=== PATIENT | male | born 1980 | race Caucasian/White ===

== ENCOUNTER 2019-07-15 11:27 | Emergency (ER) | payer OTHER, SELFPAY ==
[2019-07-15 11:33] VITALS: BP 175/109; PULSE 90; RESP 20; TEMP 36.7; O2SAT 99
--- NOTE | 2019-07-15 12:09 | ED.DENTAL ---
HPI - Dental/Oral General Chief complaint: Dental/Oral Stated complaint: tooth ache Time Seen by Provider: 07/15/19 12:09 Source: patient Mode of arrival: ambulatory Limitations: no limitations History of Present Illness HPI Narrative: 39-year-old male patient presents to the [facility] with complaints of right lower dental pain for the past 3 days. Patient states that he has had a broken tooth to the back of the right oral cavity for years now but this recently has started to bother him causing some pain. Patient states he has taken 800 mg ibuprofen twice in the last 3 to 4 days. Patient states he is also been taking shots of whiskey and gargling it and then spitting it out to help with the pain. Patient states he does have an appointment with the dental clinic on Thursday in the morning to have it looked at and possibly pulled. Patient denies any fevers. Related Data Allergies Allergy/AdvReac Type Severity Reaction Status Date / Time No Known Allergies Allergy Verified 07/15/19 11:49 Review of Systems Review of Systems: Narrative: CONSTITUTIONAL: Denies fever, chills, or sweats. EYES: Denies visual changes, redness, or discharge. ENT: Denies rhinorrhea, congestion, sore throat, or otalgia. Positive right lower dental pain CARDIOVASCULAR: Denies chest pain, palpitations, or edema. RESPIRATORY: Denies cough or dyspnea. GASTROINTESTINAL: Denies abdominal pain, nausea, vomiting, or diarrhea. GENITOURINARY: Denies dysuria or hematuria. SKIN: Denies rash or itching. MUSCULOSKELETAL: Denies back pain, joint pain, or myalgia. NEUROLOGIC: Denies headache, numbness, or weakness. PSYCHIATRIC: Denies anxiety or depression. PMFSH Comments At the time of my signature I agree with nursing past medical history, surgical, social, and family history. There is no relevant family history pertinent to the presenting complaint. Exam Narrative: Exam Narrative: GENERAL: Well-appearing, well-nourished, and in no acute distress. HEAD: Normocephalic, atraumatic. EYES: PERRLA and EOMI. ENT: Nares clear, no rhinorrhea or epistaxis. Mucous membranes moist. Patient does have a broken tooth noted to the right back molar on the bottom. There is some surrounding erythema and swelling. There is no obvious abscess and no discharge present at this time. No swelling to the cheek or posterior pharynx at this time. NECK: Supple. No lymphadenopathy CHEST: Clear to auscultation. No respiratory distress. HEART: Regular rate and rhythm. No murmur heard. Normal peripheral pulses. ABDOMEN: Soft, nontender, nondistended, normal active bowel sounds. EXTREMITIES: Normal range of motion. No edema. SKIN: Warm, dry, no rash. NEURO: No focal deficits. Alert and oriented x3. Course Vital Signs Vital signs: Vital Signs Temperature 36.7 C 07/15/19 11:33 Pulse Rate 90 07/15/19 11:33 Respiratory Rate 20 07/15/19 11:33 Blood Pressure 175/109 H 07/15/19 11:33 Pulse Oximetry 99 07/15/19 11:33 Temperature 36.7 C 07/15/19 11:33 Pulse Rate 90 07/15/19 11:33 Respiratory Rate 20 07/15/19 11:33 Blood Pressure 175/109 H 07/15/19 11:33 Pulse Oximetry 99 07/15/19 11:33 Vital signs reviewed. The patient has been informed that they may have pre-hypertension or Hypertension based on a BP reading in the department. I recommend that the patient call the primary care provider listed on their discharge instructions or a physician of their choice this week to arrange follow up for further evaluation of possible pre-hypertension or Hypertension MDM - Dental/Oral MDM Narrative Medical decision making narrative: Differential diagnosis: Dental caries, periodontal disease, avulsed tooth, tooth infections, mandibular infection, Yovani's angiana, upper tooth infection, dry socket, gingivitis, acute necrotizing ulcerative gingivitis, sialolithiasis. Discussed with patient we will discharge him home with 100 mg ibuprofen as well as an antibiotic to help with t
[2019-07-15 12:25] VITALS: BP 158/91
== END 2019-07-15 12:25 | disposition home or self-care (01) ==
PROVIDERS: Emergency Provider Nurse Practitioner Family
DX: K08.89 Other specified disorders of teeth and supporting structures (principal); K02.9 Dental caries, unspecified; I10 Essential (primary) hypertension
CPT/HCPCS: 99213; G0463

== ENCOUNTER 2021-12-07 14:33 | Emergency (ER) | payer OTHER, SELFPAY ==
[2021-12-07 14:40] VITALS: BP 162/99; PULSE 87; RESP 18; TEMP 36.5; O2SAT 97
--- NOTE | 2021-12-07 15:01 | ECG_ITS ---
Measurements Intervals [place] Rate: 91 P: 65 PA: 173 QRS: 62 QRSD: 94 T: 54 QT: 351 QTc: 432 Interpretive Statements SINUS RHYTHM VOLTAGE CRITERIA FOR LVH MINIMAL Q WAVES- ANTEROLAT/INF LEADS BORDERLINE ECG NO PREVIOUS ECG AVAILABLE FOR COMPARISON Electronically Signed On 12-07-2021 21:43:44 CDT by Koffi De D.O.
--- NOTE | 2021-12-07 15:05 | ED.CHESTPAIN ---
HPI - Chest Pain General Chief Complaint: Chest Pain Stated Complaint: chest pain Time Seen by Provider: 12/07/21 14:55 Source: patient Mode of arrival: ambulatory Limitations: no limitations History of Present Illness HPI narrative: this is a 41-year-old gentleman no significant past medical history states that he was out drinking overnight and had a large yd that he mowed and cleared heavy branches and developed an episode of left-sided chest pain reproducible with palpation no shortness of breath no diaphoresis no nausea vomiting no fever chills no history of heart disease. MD complaint: chest pain Onset (ago): hour(s) Onset: during rest Pain location: substernal Quality: aching Exacerbating factors: nothing Related Data Home Medications Medication Instructions Recorded Confirmed No Home Medications 12/07/21 12/07/21 Allergies Allergy/AdvReac Type Severity Reaction Status Date / Time No Known Allergies Allergy Verified 12/07/21 14:59 Review of Systems Review of Systems: All systems reviewed & are unremarkable except as noted in HPI and below PMFSH Past Medical History Medical History Patient denies medical problems Exam Const: General: healthy appearing and no acute distress HENMT: Head: normal to inspection Eyes: Conjunctivae: conjunctivae normal Pupils: Equal, round and reactive pupils present Neck: Neck: normal visual inspection, no lymphadenopathy and no meningeal signs Chest: Chest palpation & inspection: normal inspection of the chest Other: reproducible chest pain with palpation Resp: Auscultation: clear to auscultation bilaterally Cardio: Rate: regular rate Rhythm: regular rhythm GI: Auscultation: normal bowel sounds Back/Spine/Pelvis: Back: no CVA tenderness Skin: General skin exam: normal color Rashes: no rashes Wounds: no wounds Neuro: General: patient oriented x3 Extrem: General: normal to inspection Psych: Mental Status: mental status grossly normal Affect: normal affect Course Course Emergency Course: EKG reviewed shows normal sinus rhythm advised patient to drink plenty of water keep himself hydrated and can take Tylenol or Motrin if there is any more discomfort. Vital Signs Vital signs: Vital Signs Temperature 36.5 C 12/07/21 14:40 Pulse Rate 87 12/07/21 14:40 Respiratory Rate 18 12/07/21 14:40 Blood Pressure 162/99 H 12/07/21 14:40 Pulse Oximetry 97 12/07/21 14:40 Oxygen Delivery Room Air 12/07/21 14:40 Temperature 36.5 C 12/07/21 14:40 Pulse Rate 87 12/07/21 14:40 Respiratory Rate 18 12/07/21 14:40 Blood Pressure 162/99 H 12/07/21 14:40 Pulse Oximetry 97 12/07/21 14:40 Oxygen Delivery Room Air 12/07/21 14:40 Critical Care Time Critical Care Time Critical Care Time: No Discharge Plan Discharge Clinical Impression: Costalchondritis Patient Disposition: Home, Self-Care Condition: Stable Instructions: Antibiotic Form, Costochondritis (ED) Additional Instructions: Keep yourself hydrated can drink plenty of water/ Gatorade can take Tylenol or Motrin for any more chest discomfort follow-up with primary if symptoms persist or worsen. Prescriptions: No Action No Home Medications Follow-up/Referrals: UNKNOWN,DOCTOR [Primary Care Provider] - Time of Disposition: 15:10
[2021-12-07 15:14] VITALS: BP 150/84; PULSE 75; RESP 18; O2SAT 97
== END 2021-12-07 15:16 | disposition home or self-care (01) ==
PROVIDERS: Emergency Provider Emergency Medicine
DX: M94.0 Chondrocostal junction syndrome [Tietze] (principal)
CPT/HCPCS: 93005; 99283

== ENCOUNTER 2022-02-21 13:15 | Emergency (ER) | payer OTHER, SELFPAY ==
[2022-02-21] VITALS (27 sets, daily range): BP systolic 132–158; BP diastolic 75–87; PULSE 78–91; RESP 20; TEMP 36.8–36.9; O2SAT 93–98
--- NOTE | ~2022-02-21 | XR_ITS ---
EXAMINATION: XR chest 2V DATE: 02/21/2022 14:15 INDICATION: Lateral sided left chest pain and cough TECHNIQUE: PA and lateral views of the chest were obtained. COMPARISON: None FINDINGS: Airspace opacity in the retrohilar superior segment of the left lower lobe. No other airspace opaciti es, pulmonary edema, pleural effusion or pneumothorax. The cardiomediastinal silhouette is normal. Vi sualized bones and soft tissues are unremarkable. IMPRESSION: 1. Airspace opacity in the right hilar superior segment of the left lower lobe, likely pneumonia but recommend radiographic follow-up to resolution. Reviewed, dictated and finalized at location A. IFIED MEDICINE AIDE
--- NOTE | ~2022-02-21 | CT_ITS ---
EXAMINATION: CTA chest PE protocol DATE: 02/21/2022 15:08 INDICATION: Pleuritic chest pain. Elevated d-dimer. TECHNIQUE: Computed tomography angiography (CTA) of the chest was performed with 100 mL Omnipaque-350 intravenous contrast timed to evaluate the pulmonary arteries. Coronal maximum intensity projection 3D-reconstructions were created by the technologist. Automated exposure control and iterative reconst ruction technique were employed. Exam dose: 349.91 mGy-cm total exam DLP. COMPARISON: Lateral left chest pain and cough for one week FINDINGS: There is moderate contrast opacification of the pulmonary arteries and no evidence of pulmo nary embolism. No thoracic aortic aneurysm or dissection. There is mild left hilar lymph node prominence, likely reactive to a cavitating area of consolidation or cavitating approximately 3.7 cm mass with surrounding infiltrate in the superior segment of the l eft lower lobe. The lung quiñones are otherwise clear. Normal heart size. No pericardial or pleural effusion. Adrenal glands are normal. Included upper abdominal structures are unremarkable. Included skeletal structures are unremarkable. IMPRESSION: Cavitating mass or cavitary consolidation, superior segment of left lower lobe, with tyra e surrounding infiltrate. Likely mild reactive left hilar lymph node prominence No evidence of pulmonary embolism Reviewed, dictated and finalized at Location [facility]. Reviewed, dictated and finalized at location A. EQUIPMENT OPERATOR IMPRESSION: Cavitating mass or cavitary consolidation, superior segment of lef t lower lobe, with some surrounding infiltrate. Likely mild reactive left hilar lymph node prominence No evidence of pulmonary embolism
--- NOTE | 2022-02-21 13:57 | ED.GENADULT ---
HPI - General Adult General Chief complaint: Upper Respiratory Infection Stated complaint: L side pain Time Seen by Provider: 02/21/22 13:57 History of Present Illness HPI narrative: Patient is a 41-year-old white male complains of left lateral chest wall pain and cough for last week productive of some sputum which he says he swallows. Says hurts when he coughs or takes deep breath. Denies any fever her anterior chest pain denies any history of heart or lung or venous thromboembolism. Not taken anything for the pain. Denies any nausea vomiting diarrhea problems voiding rash or itching or fever. Related Data Home Medications Medication Instructions Recorded Confirmed No Home Medications 12/07/21 02/21/22 Allergies Allergy/AdvReac Type Severity Reaction Status Date / Time pollen extracts Allergy Cough Verified 02/21/22 13:57 Review of Systems Review of Systems: All systems reviewed & are unremarkable except as noted in HPI and below Constitutional: Constitutional: Reports as per HPI Eyes: Eyes: Reports no additional eye complaints ENT: Reports system reviewed and no additional complaints, except as documented Cardiovascular: Cardiovascular: Reports as per HPI and Reports no additional cardiovascular complaints Respiratory: Respiratory: Reports as per HPI, Reports no additional respiratory complaints and Denies dyspnea Gastrointestinal: Gastrointestinal: Reports as per HPI and Reports no additional gastrointestinal complaints Genitourinary: Genitourinary: Reports no additional male genitourinary complaints Musculoskeletal: Musculoskeletal: Reports no additional musculoskeletal complaints and Reports as per HPI Integumentary/Breasts: Skin/Breast: Reports system reviewed and no additional complaints, except as docu Neurologic: Reports system reviewed and no additional complaints, except as documented [facility] Past Medical History Medical History Patient denies medical problems Exam Narrative: White male appears in no apparent distress head is normocephalic atraumatic eyes conjunctiva pink sclera nonicteric oropharynx clear with moist mucous membranes. Chest and back are nontender. Lungs are clear heart is regular rate rhythm without murmurs gallops or rubs. Abdomen is soft and nontender no hepatosplenomegaly or masses extremities no cyanosis clubbing or edema skin is warm and dry he has multiple spider hemangiomas of his trunk. Patient admits to drinking excessive alcohol. Vital signs are normal Course Course Emergency Course: Evaluation plan was discussed with patient all questions were asked and answered. And a plan was agreed upon patient was given Levaquin 750 mg p.o. and a spacer for his albuterol inhaler Vital Signs Vital signs: Vital Signs Temperature 36.8 C 02/21/22 13:20 Pulse Rate 87 02/21/22 13:20 Respiratory Rate 20 02/21/22 13:20 Blood Pressure 148/87 H 02/21/22 13:20 Pulse Oximetry 96 02/21/22 13:20 Oxygen Delivery Room Air 02/21/22 13:20 Temperature 36.8 C 02/21/22 13:20 Pulse Rate 85 02/21/22 15:06 Respiratory Rate 20 02/21/22 13:20 Blood Pressure 158/77 H 02/21/22 15:06 Pulse Oximetry 98 02/21/22 15:06 Oxygen Delivery Room Air 02/21/22 13:20 Medical Decision Making Vital Signs Vital Signs: Vital Signs Temperature 36.8 C 02/21/22 13:20 Pulse Rate 87 02/21/22 13:20 Respiratory Rate 20 02/21/22 13:20 Blood Pressure 148/87 H 02/21/22 13:20 Pulse Oximetry 96 02/21/22 13:20 Oxygen Delivery Room Air 02/21/22 13:20 Temperature 36.8 C 02/21/22 13:20 Pulse Rate 85 02/21/22 15:06 Respiratory Rate 20 02/21/22 13:20 Blood Pressure 158/77 H 02/21/22 15:06 Pulse Oximetry 98 02/21/22 15:06 Oxygen Delivery Room Air 02/21/22 13:20 Lab Data Result diagrams: 02/21/22 14:19 02/21/22 14:19 Labs: Lab Results
[2022-02-21 14:22] LABS: Hematocrit 39.1 % (40.0-54.0); Hemoglobin 13.8 g/dL (14.0-18.0); Mean Corpuscular HGB Conc 35.3 g/dL (32.0-36.0); Mean Corpuscular Hemoglobin 33.5 pg (27.0-31.0); Mean Corpuscular Volume 94.9 fL (78.0-102.0); Mean Platelet Volume 8.9 fl (8.7-11.0); Platelet Count Result 275 K/mm3 (150-420); Red Blood Count 4.12 M/mm3 (4.70-6.10); Red Cell Distribution Width 11.4 % (11.6-14.4); White Blood Count 11.1 K/mm3 (4.8-10.8)
[2022-02-21 14:33] LABS: Influenza A QL RT-PCR Negative (Negative); Influenza B QL RT-PCR Negative (Negative); SARS-CoV-2 RNA PCR Negative (Negative)
[2022-02-21 14:35] LABS: RSV RNA, RT-PCR Negative (Negative)
[2022-02-21 14:37] LABS: Alanine Aminotransferase 40 U/L (16-63); Albumin Level 3.3 g/dL (3.4-5.0); Alkaline Phosphatase 122 U/L (46-116); Anion Gap 12 mmol/L (8-16); Aspartate Amino Transferase 22 U/L (15-37); Bilirubin,Total 0.8 mg/dL (0.00-1.00); Blood Urea Nitrogen 9 mg/dL (7-18); Calcium 9.1 mg/dL (8.5-10.1); Carbon Dioxide 25 mmol/L (21-32); Chloride 97 mmol/L (98-108); Estimated CRCL calculation 96 ml/min; Estimated Glomerular Filt Rate > 60; Glucose 99 mg/dL (70-99); Osmolality Calculated 276 mOsm/kg (285-295); Potassium 4.2 mmol/L (3.5-5.1); Sodium 134 mmol/L (136-145); Total Protein 7.9 g/dL (6.4-8.2)
[2022-02-21 14:54] LABS: Troponin I < 4.0 ng/L (0.00-60.4)
[2022-02-21] MEDS: levoFLOXacin TAB 500 MG, levoFLOXacin TAB 250 MG 750 MG PO (18:29)
== END 2022-02-21 18:45 | disposition home or self-care (01) ==
PROVIDERS: Emergency Provider Emergency Medicine
DX: J18.9 Pneumonia, unspecified organism (principal); R91.1 Solitary pulmonary nodule; Z20.822 Contact with and (suspected) exposure to COVID-19
CPT/HCPCS: 36415; 71046; 71275; 80053; 84484; 85027; 85380; 87637; 99284; A9270; Q9967

== ENCOUNTER 2022-03-07 11:10 | Outpatient (CLI) | payer OTHER, SELFPAY ==
--- NOTE | ~2022-03-07 | XR_ITS ---
XR chest 2V DATE: 03/07/2022 11:34 INDICATION: Pneumonia. Smoker. Asthma. TECHNIQUE: PA and lateral views COMPARISON: 02/21/2022 CT pulmonary scan FINDINGS: There is apparent diminished infiltrate and improvement or resolution of cavitary lesion in the superior segment of the left lower lobe compared to 02/21/2022. The lungs otherwise are clear of infiltrate or consolidation. The lungs are moderately hyperinflated consistent with obstructive airways disease. Normal heart size. No hilar or mediastinal enlargement. No pleural effusion or pulmonary vascular con gestion or pneumothorax. Included skeletal structures are unremarkable. IMPRESSION: Improvement of superior segment left lower lobe infiltrate and apparent resolving or reso lved cavitation in the superior segment left lower lobe compared to 02/21/2022. There is some residua l infiltrate. Continued imaging follow-up to complete resolution is recommended. COPD Reviewed, dictated and finalized at location B. TECHNICIAN IMPRESSION: Improvement of superior segment left lower lobe infiltrate and appa rent resolving or resolved cavitation in the superior segment left lower lobe c ompared to 02/21/2022. There is some residual infiltrate. Continued imaging fol low-up to complete resolution is recommended. COPD
[2022-03-07 11:28] LABS: Basophils Absolute Auto 0.03 K/mm3 (0.00-0.10); Basophils Percent Auto 0.5 % (0.0-1.0); Eosinophils Absolute Auto 0.07 K/mm3 (0.02-0.50); Eosinophils Percent Auto 1.2 % (1.0-6.0); Hematocrit 42.7 % (40.0-54.0); Hemoglobin 14.7 g/dL (14.0-18.0); Immature Granulocyte Absolute 0.04 K/mm3 (0.00-0.00); Immature Granulocyte Percent A 0.7 % (0.0-0.0); Lymphocytes Absolute Auto 1.76 K/mm3 (1.10-4.50); Lymphocytes Percent Auto 29.3 % (18.0-42.0); Mean Corpuscular HGB Conc 34.4 g/dL (32.0-36.0); Mean Corpuscular Hemoglobin 33.1 pg (27.0-31.0); Mean Corpuscular Volume 96.2 fL (78.0-102.0); Mean Platelet Volume 8.6 fl (8.7-11.0); Monocytes Absolute Auto 0.32 K/mm3 (0.10-0.90); Monocytes Percent Auto 5.3 % (2.0-11.0); Neutrophils Absolute Auto 3.8 K/mm3 (1.7-7.2); Platelet Count Result 412 K/mm3 (150-420); Red Blood Count 4.44 M/mm3 (4.70-6.10); Red Cell Distribution Width 11.4 % (11.6-14.4)
== END 2022-03-07 11:11 | disposition home or self-care (01) ==
LOC: CHSLAB 11:13
PROVIDERS: PCP Family Medicine; Visit Provider Internal Medicine Pulmonary Disease
DX: J18.9 Pneumonia, unspecified organism (principal)
CPT/HCPCS: 36415; 71046; 85025

== ENCOUNTER 2022-12-01 12:19 | Emergency (ER) | payer OTHER, SELFPAY ==
[2022-12-01 12:22] VITALS: BP 140/94; PULSE 71; RESP 18; TEMP 36.8; O2SAT 97
--- NOTE | 2022-12-01 12:23 | ED.GENADULT ---
HPI - General Adult General Chief complaint: Dental/Oral Stated complaint: Tooth pain Time Seen by Provider: 12/01/22 12:20 History of Present Illness HPI narrative: Garry is a 42M with a PMH of asthma, smoking and pneumonia that presented to the ED with a day of worsening dental pain on the left upper side. As it is a holiday weekend he could not get to the dentist. No fevers, chills, dysphagia, or other systemic symptoms. Related Data Allergies Allergy/AdvReac Type Severity Reaction Status Date / Time pollen extracts Allergy Cough Verified 12/01/22 12:21 Review of Systems Review of Systems: All systems reviewed & are unremarkable except as noted in HPI and below PMFSH Past Medical History Medical History Patient denies medical problems Social History Social History Smoking packs per day: 2 Smoking cigarettes per day: 40.0 Years smoked: 25 Smoking pack-years: 50.00 Smoking status: Current every day smoker Second hand tobacco smoke exposure: Yes Alcohol intake: former Alcohol use details: Pt has not had a drink since 02/20/22 Substance use: current Substance use type: marijuana Lack of Transportation: No Lack of Food: Never True Current Housing: I Have Housing Concerned About Future Housing: No Difficulty Paying Gas/Electric Bills: No Difficulty Paying for Meds: No Currently Unemployed: No Education: High School Diploma/GED Difficulty w/ Childcare or Family Care: No Living arrangements: with family Exam Const: General: healthy appearing and no acute distress Nutritional Appearance: well nourished Orientation/consciousness: patient oriented x3 HENMT: Head: normal to inspection Ears: external ears normal Face/Nose/Sinus: Normal external nose present Other: Left upper molar was TTP, swollen and erythematous Eyes: Conjunctivae: conjunctivae normal Pupils: Equal, round and reactive pupils present Neck: Neck: normal visual inspection Chest: Chest palpation & inspection: normal inspection of the chest Resp: Effort & Inspection: normal respiratory effort Auscultation: clear to auscultation bilaterally Cardio: Rate: regular rate GI: Inspection: distended Back/Spine/Pelvis: Back: no CVA tenderness Skin: General skin exam: normal color Neuro: General: patient oriented x3 and moves all extremities Extrem: General: normal to inspection Psych: Mental Status: mental status grossly normal Course Course Emergency Course: Given Augmentin and Delta Discharge Plan Discharge Clinical Impression: Dental abscess Patient Disposition: Home, Self-Care Condition: Stable Instructions: Antibiotic Form Prescriptions: New amoxicillin-pot clavulanate 875-125 mg tablet 1 tablet PO Q12H Qty: 10 0RF oxycodone 5 mg tablet 5 mg PO Q8H PRN (Reason: pain) Qty: 10 0RF Follow-up/Referrals: Fracisco Skinner DO [Primary Care Provider] - Stand Alone Forms: Work/School Release IP
[2022-12-01] MEDS: HYDROcodone/acetaminophen (*CRX) 5-325 MG TABLET 1 TAB PO (12:33)
[2022-12-01] MEDS: AMOXICILLIN/CLAVULANATE K 875-125 MG TAB 1 TABLET PO (12:33)
[2022-12-01 12:54] VITALS: BP 140/94; PULSE 71; RESP 18; TEMP 36.8; O2SAT 97
== END 2022-12-01 12:56 | disposition home or self-care (01) ==
PROVIDERS: Emergency Provider Family Medicine; PCP Family Medicine
DX: K04.7 Periapical abscess without sinus (principal); J45.909 Unspecified asthma, uncomplicated; F17.210 Nicotine dependence, cigarettes, uncomplicated
CPT/HCPCS: 99283; A9270

== ENCOUNTER 2023-01-15 18:15 | Emergency (ER) | payer OTHER, SELFPAY ==
--- NOTE | ~2023-01-15 | XR_ITS ---
EXAMINATION: XR chest 1V portable INDICATION: Midsternal chest pain TECHNIQUE: Portable AP chest at 1912 hours COMPARISON: 01/05/2022 FINDINGS: The lungs are free of acute opacities. No pleural effusion or pneumothorax. The cardiomedia stinal silhouette is normal. IMPRESSION: 1. No acute cardiopulmonary abnormality. Reviewed, dictated and finalized at location F.
[2023-01-15 18:15] VITALS: BP 128/89; PULSE 74; RESP 16; TEMP 37.1; O2SAT 99
[2023-01-15 18:33] VITALS: O2SAT 98
[2023-01-15 18:53] VITALS: PULSE 76; RESP 18; O2SAT 97
[2023-01-15] MEDS: IPRATROPIUM 0.5 MG/ALBUTEROL SULFATE 2.5 MG AMPUL.NEB 3 ML INHALATION (18:53)
[2023-01-15 18:58] LABS: Basophils Absolute Auto 0.03 K/mm3 (0.00-0.10); Basophils Percent Auto 0.4 % (0.0-1.0); Eosinophils Absolute Auto 0.18 K/mm3 (0.02-0.50); Eosinophils Percent Auto 2.4 % (1.0-6.0); Hematocrit 43.8 % (40.0-54.0); Hemoglobin 15.1 g/dL (14.0-18.0); Immature Granulocyte Absolute 0.02 K/mm3 (0.00-0.00); Immature Granulocyte Percent A 0.3 % (0.0-0.0); Lymphocytes Absolute Auto 2.23 K/mm3 (1.10-4.50); Lymphocytes Percent Auto 30.1 % (18.0-42.0); Mean Corpuscular HGB Conc 34.5 g/dL (32.0-36.0); Mean Corpuscular Hemoglobin 31.3 pg (27.0-31.0); Mean Corpuscular Volume 90.7 fL (78.0-102.0); Mean Platelet Volume 9.7 fl (8.7-11.0); Monocytes Absolute Auto 0.76 K/mm3 (0.10-0.90); Monocytes Percent Auto 10.3 % (2.0-11.0); Neutrophils Absolute Auto 4.2 K/mm3 (1.7-7.2); Neutrophils Percent Auto 56.5 % (50.0-70.0); Platelet Count Result 230 K/mm3 (150-420); Red Blood Count 4.83 M/mm3 (4.70-6.10); Red Cell Distribution Width 12.5 % (11.6-14.4); White Blood Count 7.4 K/mm3 (4.8-10.8)
[2023-01-15 19:04] VITALS: PULSE 80; RESP 18; O2SAT 100
[2023-01-15] MEDS: methylPREDNISolone ACETATE 40 MG/ML VIAL 80 MG IM (19:04)
[2023-01-15 19:15] LABS: Alanine Aminotransferase 21 U/L (16-63); Albumin Level 4.1 g/dL (3.4-5.0); Alkaline Phosphatase 149 U/L (46-116); Anion Gap 12 mmol/L (8-16); Aspartate Amino Transferase < 10 U/L (15-37); Bilirubin,Total 0.5 mg/dL (0.00-1.00); Blood Urea Nitrogen 4 mg/dL (7-18); Calcium 9.6 mg/dL (8.5-10.1); Carbon Dioxide 28 mmol/L (21-32); Chloride 102 mmol/L (98-108); Estimated CRCL calculation 94 ml/min; Estimated Glomerular Filt Rate > 60; Glucose 94 mg/dL (70-99); Osmolality Calculated 290 mOsm/kg (285-295); Sodium 142 mmol/L (136-145); Total Protein 7.5 g/dL (6.4-8.2)
[2023-01-15 19:36] VITALS: BP 132/88; PULSE 72; RESP 19; O2SAT 96
[2023-01-15 19:36] LABS: Influenza A QL RT-PCR Negative (Negative); Influenza B QL RT-PCR Negative (Negative); SARS-CoV-2 RNA PCR Negative (Negative)
[2023-01-15 19:37] LABS: RSV RNA, RT-PCR Negative (Negative)
--- NOTE | 2023-01-15 19:56 | ED.URI ---
HPI - URI/Sore Throat General Chief Complaint: Upper Respiratory Infection Stated Complaint: congestion; upper respiratory infection Time Seen by Provider: 01/15/23 18:23 Source: patient Mode of arrival: ambulatory Limitations: no limitations History of Present Illness HPI Narrative: this is a 42-year-old male who presents with shortness of breath with audible wheezing has a history of asthma has been using his albuterol inhaler with relief, continues to smoke. Patient O2 sats 100% on room air no cough no congestion no fever chills. MD elicited complaint: other ( shortness of breath with wheezing) Onset (ago): day(s) Consistency: intermittent Severity: moderate Related Data Home Medications Medication Instructions Recorded Confirmed albuterol sulfate 90 mcg/actuation 2 puff inhalation QID 01/15/23 01/15/23 aerosol inhaler Allergies Allergy/AdvReac Type Severity Reaction Status Date / Time pollen extracts Allergy Cough Verified 01/15/23 18:30 Review of Systems Review of Systems: All systems reviewed & are unremarkable except as noted in HPI and below PMFSH Past Medical History Medical History Patient denies medical problems Social History Social History Smoking packs per day: 2 Smoking cigarettes per day: 40.0 Years smoked: 25 Smoking pack-years: 50.00 Smoking status: Current every day smoker Second hand tobacco smoke exposure: Yes Alcohol intake: former Alcohol use details: Pt has not had a drink since 02/20/22 Substance use: current Substance use type: marijuana Lack of Transportation: No Lack of Food: Never True Current Housing: I Have Housing Concerned About Future Housing: No Difficulty Paying Gas/Electric Bills: No Difficulty Paying for Meds: No Currently Unemployed: No Education: High School Diploma/GED Difficulty w/ Childcare or Family Care: No Living arrangements: with family Exam Const: General: healthy appearing Nutritional Appearance: well nourished Orientation/consciousness: patient oriented x3 HENMT: Head: normal to inspection Eyes: Conjunctivae: conjunctivae normal Pupils: Equal, round and reactive pupils present Neck: Neck: normal visual inspection and no lymphadenopathy Chest: Chest palpation & inspection: normal inspection of the chest Resp: Effort & Inspection: normal respiratory effort Auscultation: wheezes Cardio: Rate: regular rate Rhythm: regular rhythm GI: GI Palp: Yes Soft to palpation Skin: General skin exam: normal color Rashes: no rashes Course Course Emergency Course: Patient received nebulizer treatment along with IM steroid of Depo-Medrol 80mg IM reassessment of patient wheezing has subsided patient feels much better. Vital Signs Vital signs: Vital Signs Temperature 37.1 C 01/15/23 18:15 Pulse Rate 74 01/15/23 18:15 Respiratory Rate 16 01/15/23 18:15 Blood Pressure 128/89 01/15/23 18:15 Pulse Oximetry 99 01/15/23 18:15 Oxygen Delivery Room Air 01/15/23 18:15 Temperature 37.1 C 01/15/23 18:15 Pulse Rate 80 01/15/23 19:04 Respiratory Rate 18 01/15/23 19:04 Blood Pressure 128/89 01/15/23 18:15 Pulse Oximetry 100 01/15/23 19:04 Oxygen Delivery Room Air 01/15/23 18:33 MDM - URI/Sore Throat Lab Data 01/15/23 18:55 01/15/23 18:55 Labs: Lab Results 01/15/23 Range/Units 18:55 WBC 7.4 (4.8-10.8) K/mm3 RBC 4.83 (4.70-6.10) M/mm3 Hgb 15.1 (14.0-18.0) g/dL Hct 43.8 (40.0-54.0) % MCV 90.7 (78.0-102.0) fL MCH 31.3 H (27.0-31.0) pg MCHC 34.5 (32.0-36.0) g/dL RDW 12.5 (11.6-14.4) % Plt Count 230 (150-420) K/mm3 MPV 9.7 (8.7-11.0) fl Immature Gran % (Auto) 0.3 H (0.0-0.0) % Neut % (Auto) 56.5 (50.0-70.0) % Lymph % (Auto) 30.1 (18.0-42.0) % [place] % (Auto) 10.3 (2.0-11.0) %
[2023-01-15 20:38] VITALS: BP 138/72; PULSE 78; RESP 18; TEMP 36.8; O2SAT 96
== END 2023-01-15 20:40 | disposition home or self-care (01) ==
PROVIDERS: Emergency Provider Emergency Medicine; PCP Family Medicine
DX: J40 Bronchitis, not specified as acute or chronic (principal); F17.210 Nicotine dependence, cigarettes, uncomplicated; Z20.822 Contact with and (suspected) exposure to COVID-19
CPT/HCPCS: 36415; 71045; 80053; 85025; 87637; 94640; 96372; 99283; J1030

== ENCOUNTER 2023-03-24 11:16 | Emergency (ER) | payer OTHER, SELFPAY ==
[2023-03-24 11:17] VITALS: BP 133/79; PULSE 57; RESP 18; TEMP 36.7; O2SAT 100
--- NOTE | 2023-03-24 11:20 | ED.HEATRA ---
HPI - Head Injury General Chief complaint: Headache Stated complaint: dental Time Seen by Provider: 03/24/23 11:19 Source: patient Mode of arrival: ambulatory Limitations: no limitations History of Present Illness HPI Narrative: Patient is a 42-year-old male with right face pain. His ears also hurt. He was using a Q-tip. Complaint: head pain (right) Onset (ago): day(s) (4) Mechanism of Injury: other (Q tip) Place: home Loss of Consciousness: no Location of injury: face Severity: moderate Severity scale (1-10): 4 Quality: sharp and throbbing Radiation: none Other Injuries: none Associated symptoms: denies other symptoms Related Data Home Medications Medication Instructions Recorded Confirmed albuterol sulfate 90 mcg/actuation 2 puff inhalation QID 01/15/23 03/24/23 aerosol inhaler Allergies Allergy/AdvReac Type Severity Reaction Status Date / Time pollen extracts Allergy Cough Verified 03/24/23 11:20 Review of Systems Review of Systems: All systems reviewed & are unremarkable except as noted in HPI and below Constitutional: Constitutional: Reports no additional constitutional complaints Eyes: Eyes: Reports no additional eye complaints ENT: Reports system reviewed and no additional complaints, except as documented Cardiovascular: Cardiovascular: Reports no additional cardiovascular complaints Respiratory: Respiratory: Reports no additional respiratory complaints Gastrointestinal: Gastrointestinal: Reports no additional gastrointestinal complaints Genitourinary: Genitourinary: Reports no additional male genitourinary complaints Musculoskeletal: Musculoskeletal: Reports no additional musculoskeletal complaints Integumentary/Breasts: Skin/Breast: Reports system reviewed and no additional complaints, except as docu Neurologic: Reports system reviewed and no additional complaints, except as documented Psychiatric: Psychiatric: Reports no additional psychiatric complaints Endocrine: Endocrine: Reports no additional endocrine complaints Hematologic/Lymphatic: Hematologic/Lymphatic: Reports no additional hematologic/lymphatic complaints Allergic/Immunologic: Allergic/Immunologic: Reports no additional allergic/immunologic complaints PMF Past Medical History Medical History Patient denies medical problems Social History Social History Smoking packs per day: 2 Smoking cigarettes per day: 40.0 Years smoked: 25 Smoking pack-years: 50.00 Smoking status: Current every day smoker Second hand tobacco smoke exposure: Yes Alcohol intake: former Alcohol use details: Pt has not had a drink since 02/20/22 Substance use: current Substance use type: marijuana Lack of Transportation: No Lack of Food: Never True Current Housing: I Have Housing Concerned About Future Housing: No Difficulty Paying Gas/Electric Bills: No Difficulty Paying for Meds: No Currently Unemployed: No Education: High School Diploma/GED Difficulty w/ Childcare or Family Care: No Living arrangements: with family Exam Const: General: healthy appearing Nutritional Appearance: well nourished Orientation/consciousness: patient oriented x3 HENMT: Head: normal to inspection Ears: external ears normal and Abnormal EAC present (right; also mildly on the left too) erythema, edema and EAC tenderness Face/Nose/Sinus: Normal external nose present Eyes: Conjunctivae: conjunctivae normal Pupils: Equal, round and reactive pupils present EOM: EOMs intact bilaterally Neck: Neck: normal visual inspection Chest: Chest palpation & inspection: normal inspection of the chest Resp: Effort & Inspection: normal respiratory effort and not labored Auscultation: clear to auscultation bilaterally Cardio: Rate: regular rate Rhythm: regular rhythm Heart sounds: no murmurs GI: Inspection: non-d
== END 2023-03-24 12:02 | disposition home or self-care (01) ==
LOC: CHSED 11:47
PROVIDERS: Emergency Provider Emergency Medicine; PCP Family Medicine
DX: H66.91 Otitis media, unspecified, right ear (principal); F17.210 Nicotine dependence, cigarettes, uncomplicated
CPT/HCPCS: 99283

== ENCOUNTER 2023-07-28 09:13 | Outpatient (CLI) | payer OTHER, SELFPAY ==
[2023-07-28 09:41] LABS: Basophils Absolute Auto 0.04 K/mm3 (0.00-0.10); Basophils Percent Auto 0.6 % (0.0-1.0); Eosinophils Absolute Auto 0.13 K/mm3 (0.02-0.50); Eosinophils Percent Auto 1.9 % (1.0-6.0); Hematocrit 42.8 % (40.0-54.0); Hemoglobin 14.5 g/dL (14.0-18.0); Immature Granulocyte Absolute 0.01 K/mm3 (0.00-0.00); Immature Granulocyte Percent A 0.1 % (0.0-0.0); Lymphocytes Percent Auto 32.5 % (18.0-42.0); Mean Corpuscular HGB Conc 33.9 g/dL (32-36); Mean Corpuscular Hemoglobin 30.7 pg (27.0-31.0); Mean Corpuscular Volume 90.7 fL (78.0-102.0); Mean Platelet Volume 10.1 fl (8.7-11.0); Monocytes Percent Auto 7.4 % (2.0-11.0); Neutrophils Absolute Auto 3.89 K/mm3 (1.70-7.20); Neutrophils Percent Auto 57.5 % (50.0-70.0); Platelet Count Result 199 K/mm3 (150-420); Red Blood Count 4.72 M/mm3 (4.70-6.10); Red Cell Distribution Width 12.2 % (11.6-14.4); White Blood Count 6.8 K/mm3 (4.8-10.8)
[2023-07-28 10:39] LABS: Alanine Aminotransferase 22 U/L (16-63); Alkaline Phosphatase 135 U/L (46-116); Anion Gap 7 mmol/L (4-12); Aspartate Amino Transferase 17 U/L (15-37); Bilirubin,Total 0.4 mg/dL (0.00-1.00); Blood Urea Nitrogen 11 mg/dL (7-18); Carbon Dioxide 29 mmol/L (21-32); Chloride 105 mmol/L (98-108); Cholesterol 210 mg/dL (0-200); Estimated Glomerular Filt Rate > 60; Glucose 98 mg/dL (70-99); HDL Direct 37 mg/dL (40-60); LDL Cholesterol Calculated 149 mg/dL (<130); Osmolality Calculated 291 mOsm/kg (285-295); Potassium 4.2 mmol/L (3.5-5.1); Sodium 141 mmol/L (136-145); Total Protein 6.8 g/dL (6.4-8.2); Triglycerides 118 mg/dL (0-150)
[2023-07-28 10:59] LABS: Thyroid Stimulating Hormone Reflex 2.96 u/IU/mL (0.36-3.74)
== END 2023-07-28 09:14 | disposition home or self-care (01) ==
LOC: CHSLAB 09:14
PROVIDERS: PCP Family Medicine; Visit Provider Family Medicine
DX: E03.9 Hypothyroidism, unspecified (principal); R63.4 Abnormal weight loss
CPT/HCPCS: 36415; 80053; 80061; 84443; 85025

== ENCOUNTER 2023-07-29 09:28 | Outpatient (CLI) | payer OTHER, SELFPAY ==
[2023-07-29 09:38] LABS: Occult Blood Negative (Negative)
== END 2023-07-29 09:29 | disposition home or self-care (01) ==
PROVIDERS: PCP Family Medicine; Visit Provider Family Medicine
DX: R63.4 Abnormal weight loss (principal)
CPT/HCPCS: 82272

== ENCOUNTER 2024-06-14 14:44 | Outpatient (CLI) | payer OTHER, SELFPAY ==
[2024-06-14 15:40] LABS: Basophils Absolute Auto 0.04 K/mm3 (0.00-0.10); Basophils Percent Auto 0.6 % (0.0-1.0); Eosinophils Absolute Auto 0.14 K/mm3 (0.02-0.50); Eosinophils Percent Auto 2.2 % (1.0-6.0); Hematocrit 44.2 % (40.0-54.0); Hemoglobin A1C 5.1 % (<5.7); Immature Granulocyte Absolute 0.02 K/mm3 (0.00-0.00); Immature Granulocyte Percent A 0.3 % (0.0-0.0); Mean Corpuscular HGB Conc 33.9 g/dL (32-36); Mean Corpuscular Hemoglobin 30.7 pg (27.0-31.0); Mean Corpuscular Volume 90.6 fL (78.0-102.0); Mean Platelet Volume 9.9 fl (8.7-11.0); Monocytes Percent Auto 6.2 % (2.0-11.0); Neutrophils Absolute Auto 3.49 K/mm3 (1.70-7.20); Neutrophils Percent Auto 53.7 % (50.0-70.0); Platelet Count Result 228 K/mm3 (150-420); Red Blood Count 4.88 M/mm3 (4.70-6.10); Red Cell Distribution Width 12.5 % (11.6-14.4); White Blood Count 6.5 K/mm3 (4.8-10.8)
[2024-06-14 16:15] LABS: Alanine Aminotransferase 24 U/L (16-63); Albumin Level 4.5 g/dL (3.4-5.0); Alkaline Phosphatase 142 U/L (46-116); Anion Gap 10 mmol/L (4-12); Aspartate Amino Transferase 14 U/L (15-37); Bilirubin,Total 0.3 mg/dL (0.00-1.00); Blood Urea Nitrogen 9 mg/dL (7-18); Calcium 9.7 mg/dL (8.5-10.1); Carbon Dioxide 30 mmol/L (21-32); Chloride 105 mmol/L (98-108); Cholesterol 184 mg/dL (0-200); Estimated Glomerular Filt Rate > 60; Glucose 86 mg/dL (70-99); HDL Direct 56 mg/dL (40-60); LDL Cholesterol Calculated 117 mg/dL (<130); Osmolality Calculated 297 mOsm/kg (285-295); Potassium 4.6 mmol/L (3.5-5.1); Sodium 145 mmol/L (136-145); Total Protein 7.5 g/dL (6.4-8.2); Triglycerides 57 mg/dL (0-150); Vitamin B12 372 pg/mL (193-986)
[2024-06-14 16:19] LABS: CRP < 0.5 mg/dL (0.0-0.9)
--- OUTSIDE RECORDS SUMMARY | 2024-06-14 16:37 | XMS_ITS | Clinical Summary ---
Author Organization [facility] Address [address] [place] [address] Phone Care Team Providers Care Workforce Management Manager Name Role Phone Fracisco Skinner MD Primary Care Provider [phone] Allergies Active Allergy Reactions Criticality Noted Date Comments Pollen Extract Itching 10/26/2017 Medications albuterol (PROAIR HFA) 108 (90 BASE) MCG/ACT Aerosol Solution take 2 Puffs by inhalation every 4 hours as needed for Wheezing. 8.5 g 1 6 Active naproxen (NAPROSYN) 500 MG Tablet Take 1 Tablet by mouth 2 times daily as needed for Moderate or more severe pain. 20 Tablet 4 Active Encounters Date Type Department Care Team Description 04/02/2024 2:12 PM OPTOMETRIST ASSISTANT - 04/02/2024 3:40 PM OPTOMETRIST ASSISTANT Emergency [facility] [address] [place] [address] Heather Hollis MD Sinus bradycardia Discharge Disposition: Discharged to home or Selfcare 04/02/2024 Travel from Last 3 Months Social History Tobacco Use Types Packs/Day Years Used Date Smoking Tobacco: Every Day Cigarettes Smokeless Tobacco: Never Tobacco Cessation:Ready to Q uit: Not Asked; Counseling Given: Not Answered Alcohol Use Standard Drinks/Week Comments Not Currently 0 (1 standard drink = 0.6 oz pure alcohol) 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 Sex and Gender Information Value Date Recorded Sex Assigned at Male 12/04/2023 10:58 PM CDT Legal Sex Male 12:40 AM CDT Gender Identity Male 12/04/2023 10:58 PM CDT Sexual Orientation Not on file Last Filed Vital Signs Vital Sign Reading Time Taken Comments Blood Pressure 128/77 04/02/2024 3:15 PM OPTOMETRIST ASSISTANT Pulse 46 04/02/2024 3:15 PM OPTOMETRIST ASSISTANT Temperature 36.5 C (97.7 F) 04/02/2024 2:18 PM OPTOMETRIST ASSISTANT Respiratory Rate 18 04/02/2024 2:30 PM OPTOMETRIST ASSISTANT Oxygen Saturation 99% 04/02/2024 3:15 PM OPTOMETRIST ASSISTANT Inhaled Oxygen Concentration - - Weight 70.3 kg (154 lb 15.7 oz) 04/02/2024 2:18 PM OPTOMETRIST ASSISTANT Height 170.2 cm (5' 7 ) 04/02/2024 2:18 PM OPTOMETRIST ASSISTANT Body Mass Index 24.27 04/02/2024 2:18 PM OPTOMETRIST ASSISTANT Plan of Treatment Health Maintenance Due Date Last Done Comments Hepatitis C Virus (HCV) Screening 1982 TdaP Immunization 1982 Hepatitis B Immunization (1 of 3 - 19+ 3-dose series) 2001 Pneumococcal Immunization Co mbined (1 of 2 - PCV) 2001 Influenza Immunization (#1) 2023 SARS-COV-2 Immunization ( - season) 2023 Respiratory Syncytial Virus (RSV) Immunization (Adult) (1 - 1-dose 75+ series) 2057 Meningococcal Immunization (ACWY) Aged Out No longer eligible based on patient's age to complete this topic Rotavirus Immunization Aged Out No lo nger eligible based on patient's age to complete this topic Procedures Procedure Name Priority Date/Time Associated Diagnosis Comments XR CHEST 2 VIEWS STAT 04/02/2024 2:35 PM OPTOMETRIST ASSISTANT CBC WITH AUTO DIFFERENTIAL STAT 04/02/2024 2:20 PM OPTOMETRIST ASSISTANT TROPONIN I, HIGH SENSITIVITY (HSTRP) STAT 04/02/2024 2:20 PM OPTOMETRIST ASSISTANT CMP (COMPREHENSIVE METABOLIC PANEL) STAT 04/02/2024 2:20 PM OPTOMETRIST ASSISTANT COMPLETE BLOOD COUNT (CBC) WITH DIFF STAT 04/02/2024 2:20 PM OPTOMETRIST ASSISTANT EKG 12 LEAD STAT 04/02/2024 2:12 PM OPTOMETRIST ASSISTANT EKG SCAN 04/02/2024 12:00 AM OPTOMETRIST ASSISTANT from Last 3 Months Results * XR CHEST 2 VIEWS (04/02/2024 2:35 PM OPTOMETRIST ASSISTANT) Anatomical Region Laterality Modality Chest N/A Digital Radiogra phy 04/02/2024 3:01 PM OPTOMETRIST ASSISTANT Impressions 04/02/2024 3:03 PM OPTOMETRIST ASSISTANT IMPRESSION: No acute cardiopulmonary abnormality. Narrative 04/02/2024 3:03 PM OPTOMETRIST ASSISTANT EXAM DESCRIPTION: XR CHEST 2 VIEWS REASON FOR STUDY: left side chest pain radiating under left arm pit x 2 days. HX: Anxiety, Asthma TECHNIQUE: 2 radiographic view(s) of the chest. COMPARISON: 02/20/2024 FINDINGS: LUNGS: The lungs are clear. No focal pulmonary parenchymal consolidation, pleural effusion, or pneumothorax. HEART/MEDIASTINUM: Cardiac silhouette normal in size. Mediastinal and hilar contours appear normal. LINES/TUBES: None. BONES: No acute osseous abnormality. THIS IS AN ELECTRONICALLY VERIFIED FINAL REPORT 04/02/2024 3:01 PM - Electronically signed by Divine Mcguire M.D. AT: AT Report ID: [id number] Reading Location: [id number] Procedure Note Divine Mcguire MD - 04/02/2024 EXAM DESCRIPTION: XR CHEST 2 VIEWS REASON FOR STUDY: left side chest pain radiating under left arm pit x 2 days. HX: Anxiety, Asthma TECHNIQUE: 2 radiographic view(s) of the chest. COMPARISON: 02/20/2024 FINDINGS: LUNGS: The lungs are clear. No focal pulmonary parenchymal consolidation, pleural effusion, or pneumothorax. HEART/MEDIASTINUM: Cardiac silhouette normal in size. Mediastinal and hilar contours appear normal. LINES/TUBES: None. BONES: No acute osseous abnormality. THIS IS AN ELECTRONICALLY VERIFIED FINAL REPORT 04/02/2024 3:01 PM - Electronically signed by Divine Mcguire M.D. AT: AT Report ID: [id number] Reading Location: [id number] IMPRESSION: No acute cardiopulmonary abnormality. Heather Hollis MD IMG DIAGNOSTIC ORDERABLE S Final Result * TROPONIN I, HIGH SENSITIVITY (HSTRP) (04/02/2024 2:20 PM OPTOMETRIST ASSISTANT) [facility] TROPONIN I, HIGH SENSITIVITY- [facility] <3 <=35 ng/L 04/02/2024 3:05 PM OPTOMETRIST ASSISTANT [facility] Comment: High-sensitivity troponin I results are reported in ng/L making the result appear to be 1,000 times higher than the contemporary troponin I value which is reported in ng/ml. Results from [facility]. Blood Venipuncture / Unknown 04/02/2024 2:20 PM OPTOMETRIST ASSISTANT 04/02/2024 2:32 PM OPTOMETRIST ASSISTANT Heather Hollis MD CHEMISTRY ORDERABLES Fin al Result [facility] [address] [place] [address] * (ABNORMAL) CBC with Auto Differential (04/02/2024 2:20 PM OPTOMETRIST ASSISTANT) [facility] WBC 6.99 4.00 - 12.00 10(3)/mcL 04/02/2024 2:35 PM OPTOMETRIST ASSISTANT [facility] RBC 4.41 4.40 - 5.80 10(6)/mcL 04/02/2024 2:35 PM OPTOMETRIST ASSISTANT [facility] HEMOGLOBIN (HGB) 14.3 13.0 - 16.5 g/dL 04/02/2024 2:35 PM OPTOMETRIST ASSISTANT [facility] HEMATOCRIT (HCT) 39.8 38.0 - 50.0 % 04/02/2024 2:35 PM OPTOMETRIST ASSISTANT [facility] MCV 90.2 82.0 - 96.0 fL 04/02/2024 2:35 PM OPTOMETRIST ASSISTANT [facility] MCH 32.4(H) 26.0 - 32.0 pg 04/02/2024 2:35 PM [facility] MCHC 35.9 31.0 - 36.0 g/dL 04/02/2024 2:35 PM [facility] PLATELET COUNT 191 140 - 440 10(3)/[facility] 04/02/2024 2:35 PM [facility] RDW 12.2 11.8 - 15.5 % 04/02/2024 2:35 PM [facility] MPV 9.4 8.0 - 12.6 fL 04/02/2024 2:35 PM [facility] NEUTROPHILS 64.0 40.0 - 68.0 % 04/02/2024 2:35 PM [facility] LYMPHOCYTES 27.0 19.0 - 49.0 % 04/02/2024 2:35 PM [facility] MONOCYTES 7.2 3.0 - 13.0 % 04/02/2024 2:35 PM [facility] EOSINOPHILS 1.4 0.0 - 8.0 % 04/02/2024 2:35 PM [facility] BASOPHILS 0.4 0.0 - 1.0 % 04/02/2024 2:35 PM [facility] ABSOLUTE NEUTROPHILS 4.47 1.40 - 5.30 10(3)/mcL 04/02/2024 2:35 PM [facility] ABSOLUTE LYMPHOCYTES 1.89 0.90 - 3.30 10(3)/[facility] 04/02/2024 2:35 PM [facility] ABSOLUTE MONOCYTES 0.50 0.10 - 0.90 10(3)/[facility] 04/02/2024 2:35 PM [facility] ABSOLUTE EOSINOPHIL 0.10 0.00 - 0.50 10(3)/[facility] 04/02/2024 2:35 PM [facility] ABSOLUTE BASOPHILS 0.03 0.00 - 0.10 10(3)/[facility] 04/02/2024 2:35 PM [facility] NRBC PER 100 WBC 0 04/02/19 2:35 PM OPTOMETRIST ASSISTANT [facility] Blood Venipuncture / Unknown 04/02/2024 2:20 PM OPTOMETRIST ASSISTANT 04/02/2024 2:32 PM OPTOMETRIST ASSISTANT us Heather Hollis MD HEMATOLOGY ORDERABLES Fi nal Result [facility] [address] [place] [address] * CMP (Comprehensive Metabolic Panel) (04/02/2024 2:20 PM OPTOMETRIST ASSISTANT) SODIUM 138 136 - 145 mmol/L 04/02/2024 3:00 PM [facility] POTASSIUM 4.0 3.5 - 5.1 mmol/L 04/02/2024 3:00 PM [facility] CHLORIDE 104 98 - 107 mmol/L 04/02/2024 3:00 PM [facility] CO2, VENOUS 25 22 - 30 mmol/L 04/02/2024 3:00 PM [facility] ANION GAP 13.0 <18.0 mmol/L 04/02/2024 3:00 PM [facility] GLUCOSE 93 70 - 99 mg/dL 04/02/2024 3:00 PM [facility] BUN 11 9 - 21 mg/dL 04/02/2024 3:00 PM [facility] CREATININE, BLOOD 0.88 0.70 - 1.30 mg/dL 04/02/2024 3:00 PM [facility] BUN/CREATININE RATIO 13 12 - 20 ratio 04/02/2024 3:00 PM [facility] TOTAL PROTEIN 7.1 6.3 - 8.2 g/dL 04/02/2024 3:00 PM [facility] ALBUMIN 4.4 3.5 - 5.0 g/dL 04/02/2024 3:00 PM [facility] A/G RATIO 1.6 1.0 - 2.2 04/02/2024 3:00 PM OPTOMETRIST ASSISTANT [facility] CALCIUM 9.3 8.7 - 10.5 mg/dL 04/02/2024 3:00 PM OPTOMETRIST ASSISTANT [facility] T BILI 0.4 0.2 - 1.2 mg/dL 04/02/2024 3:00 PM OPTOMETRIST ASSISTANT [facility] SGOT (AST) 19 5 - 34 U/L 04/02/2024 3:00 PM OPTOMETRIST ASSISTANT [facility] SGPT (ALT) 18 0 - 55 U/L 04/02/2024 3:00 PM OPTOMETRIST ASSISTANT [facility] ALKALINE PHOSPHATASE 108 40 - 150 U/L 04/02/2024 3:00 PM OPTOMETRIST ASSISTANT [facility] GFR, ESTIMATED >60 >=60 04/02/2024 3:00 PM OPTOMETRIST ASSISTANT [facility] Comment: Creatinine Clearance is the preferred criteria for selecting drug dose adjustments in renally impaired patients. The GFR is provided as additional pertinent clinical information. GFR is reported in mL/min/1.73 sq m. Calculation based on the Chronic Kidney Disease Epidemiology Collaboration (CKD- EPI) equation refit without adjustment for race. GFR, EST. >60 >=60 025 3:00 PM OPTOMETRIST ASSISTANT [facility] GFR, EST. NONAFRICAN >60 >=60 04/02/2024 3:00 PM OPTOMETRIST ASSISTANT [facility] Blood Venipuncture / Unknown 04/02/2024 2:20 PM OPTOMETRIST ASSISTANT 04/02/2024 2:32 PM OPTOMETRIST ASSISTANT us Heather Hollis MD CHEMISTRY ORDERABLES Fin al Result [facility] [address] [place] [address] * EKG 12 LEAD (04/02/2024 2:12 PM OPTOMETRIST ASSISTANT) Ventricular Rate 57 BPM EXTERNAL EKG Atrial Rate 57 BPM EXTERNAL EKG P-R Interval 160 ms EXTERNAL EKG QRS Duration 92 ms EXTERNAL EKG Q-T Duration 390 ms EXTERNAL EKG QTC CALCULATION 379 ms EXTERNAL EKG P [place] 72 degrees EXTERNAL EKG R [place] 73 degrees EXTERNAL EKG T [place] 58 degrees EXTERNAL EKG 04/02/2024 2:12 PM OPTOMETRIST ASSISTANT Impressions EXTERNAL EKG - 04/04/2024 11:49 AM OPTOMETRIST ASSISTANT Normal sinus rhythm Otherwise normal ECG When compared with ECG of 20-FEB-2024 06:16, No significant change was found ~ Confirmed by Misael Lugo ([id number]) on 04/04/2024 11:49:37 AM Narrative Procedure Note Misael Lugo MD - 04/04/2024 IMPRESSION: Normal sinus rhythm Otherwise normal ECG When compared with ECG of 20-FEB-2024 06:16, No significant change was found ~ Confirmed by Misael Lugo ([id number]) on 04/04/2024 11:49:37 AM Heather Hollis MD IMG ECG ORDERABLES Final Result EXTERNAL EKG * EKG SCAN (04/02/2024 12:00 AM OPTOMETRIST ASSISTANT) 04/02/2024 us Provider Scan IMG ECG ORDERABLES Final Result RESULTING AGENCY from Last 3 Months Insurance MEDICAID [facility] Care Teams Workforce Management Manager Relationship Specialty Start Date End Date Fracisco Skinner MD [address] [place], [place] [id number] PCP - General Family Medicine 04/02/24
--- OUTSIDE RECORDS SUMMARY | 2024-06-14 16:37 | XMS_ITS ---
Author Organization [facility] Address [address] [place] [address] Phone Care Team Providers Care General Labor Forklift Operator Name Role Phone Fracisco Skinner MD Primary Care Provider [phone] [facility] Status:Enrolled (Active) Start date:04/12/2024 Enrollment date:04/12/2024 Related social drivers of health:Intimate Partner Violence, Social Connections, Alcohol Use, Tobacco Use, Financial Resource Strain,Depression, Stress, Physical Activity, Food Insecurity, Transportation Needs, Housing Stability, Utilities Continued Care and Services Coordination
[2024-06-16 02:13] LABS: Prealbumin 28 mg/dL (21-43)
== END 2024-06-14 14:45 | disposition home or self-care (01) ==
LOC: CHSLAB 14:45
PROVIDERS: PCP Family Medicine; Visit Provider Family Medicine
DX: R63.4 Abnormal weight loss (principal); E11.9 Type 2 diabetes mellitus without complications; E03.9 Hypothyroidism, unspecified; E53.8 Deficiency of other specified B group vitamins
CPT/HCPCS: 36415; 80053; 80061; 82607; 82746; 83036; 84134; 84443; 85025; 86140

== ENCOUNTER 2024-06-15 11:26 | Outpatient (CLI) | payer OTHER, SELFPAY ==
[2024-06-15 11:57] LABS: Occult Blood Negative (Negative)
--- OUTSIDE RECORDS SUMMARY | 2024-06-15 13:26 | XMS_ITS ---
Author Organization [facility] Address [address] [place] [address] Phone Care Team Providers Care Cushion Sewer Name Role Phone Fracisco Skinner MD Primary Care Provider [phone] [facility] Status:Closed (Closed) Start date:04/12/2024 Enrollment date:04/12/2024 End date:06/14/2024 Close reason:Patient graduated Related social drivers of health:Intimate Partner Violence, Social Connections, Alcohol Use, Tobacco Use, Financial Resource Strain,Depression, Stress, Physical Activity, Food Insecurity, Transportation Needs, Housing Stability, Utilities Continued Care and Services Coordination
--- OUTSIDE RECORDS SUMMARY | 2024-06-15 13:26 | XMS_ITS | Clinical Summary ---
Author Organization 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 [address] [place] [address] Heather Hollis MD Sinus bradycardia [...] Comments Blood Pressure 128/77 04/02/2024 3:15 PM SOFTWARE TESTER Pulse 46 04/02/2024 3:15 PM SOFTWARE TESTER Temperature 36.5 C (97.7 F) 04/02/2024 2:18 PM SOFTWARE TESTER Respiratory Rate 18 04/02/2024 2:30 PM SOFTWARE TESTER Oxygen Saturation 99% 04/02/2024 3:15 PM SOFTWARE TESTER Inhaled Oxygen Concentration - - Weight 70.3 kg (154 lb 15.7 oz) 04/02/2024 2:18 PM SOFTWARE TESTER Height 170.2 cm (5' 7 ) 04/02/2024 2:18 PM SOFTWARE TESTER Body Mass Index 24.27 04/02/2024 2:18 PM SOFTWARE TESTER Plan of Treatment Health Maintenance Due Date Last Done Comments Hepatitis C Virus (HCV) Screening 1982 TdaP Immunization 1982 Hepatitis B Immunization (1 of 3 - 19+ 3-dose series) 2001 Pneumococcal Immunization Co mbined (1 of 2 - PCV) 2001 Influenza Immunization (#1) 2023 SARS-COV-2 Immunization ( - 2023- season) 2023 Respiratory Syncytial Virus (RSV) Immunization (Adult) (1 - 1-dose 75+ series) 2057 Meningococcal Immunization (ACWY) Aged Out No longer eligible based on patient's age to complete this topic Rotavirus Immunization Aged Out No lo nger eligible based on patient's age to complete this topic Procedures Procedure Name Priority Date/Time Associated Diagnosis Comments XR CHEST 2 VIEWS STAT 04/02/2024 2:35 PM SOFTWARE TESTER CBC WITH AUTO DIFFERENTIAL STAT 04/02/2024 2:20 PM SOFTWARE TESTER TROPONIN I, HIGH SENSITIVITY (HSTRP) STAT 04/02/2024 2:20 PM SOFTWARE TESTER CMP (COMPREHENSIVE METABOLIC PANEL) STAT 04/02/2024 2:20 PM SOFTWARE TESTER COMPLETE BLOOD COUNT (CBC) WITH DIFF STAT 04/02/2024 2:20 PM SOFTWARE TESTER EKG 12 LEAD STAT 04/02/2024 2:12 PM SOFTWARE TESTER EKG SCAN 04/02/2024 12:00 AM SOFTWARE TESTER from Last 3 Months Results * XR CHEST 2 VIEWS (04/02/2024 2:35 PM SOFTWARE TESTER) Anatomical Region Laterality Modality Chest N/A Digital Radiogra phy 04/02/2024 3:01 PM SOFTWARE TESTER Impressions 04/02/2024 3:03 PM SOFTWARE TESTER IMPRESSION: No acute cardiopulmonary abnormality. Narrative 04/02/2024 3:03 PM SOFTWARE TESTER EXAM DESCRIPTION: XR CHEST 2 VIEWS REASON [...] Divine Mcguire M.D. AT: AT Report ID: [id number] Reading Location: [id number] Procedure Note Divine Mcguire MD - 04/02/2024 [...] Divine Mcguire M.D. AT: AT Report ID: [id number] Reading Location: [id number] IMPRESSION: No acute cardiopulmonary abnormality. Heather Hollis MD IMG DIAGNOSTIC ORDERABLE S Final Result * TROPONIN I, HIGH SENSITIVITY (HSTRP) (04/02/2024 2:20 PM SOFTWARE TESTER) Pathologist [facility] TROPONIN I, HIGH SENSITIVITY- [facility] <3 <=35 ng/L 04/02/2024 3:05 PM SOFTWARE TESTER [facility] Comment: High-sensitivity troponin I results are reported in ng/L making the result appear to be 1,000 times higher than the contemporary troponin I value which is reported in ng/ml. Results from [facility]. Blood Venipuncture / Unknown 04/02/2024 2:20 PM SOFTWARE TESTER 04/02/2024 2:32 PM SOFTWARE TESTER Heather Hollis MD CHEMISTRY ORDERABLES Fin al Result [facility] [address] [place] [address] * (ABNORMAL) CBC with Auto Differential (04/02/2024 2:20 PM SOFTWARE TESTER) [facility] WBC 6.99 4.00 - 12.00 10(3)/mcL 04/02/2024 2:35 PM SOFTWARE TESTER [facility] RBC 4.41 4.40 - 5.80 10(6)/mcL 04/02/2024 2:35 PM SOFTWARE TESTER [facility] HEMOGLOBIN (HGB) 14.3 13.0 - 16.5 g/dL 04/02/2024 2:35 PM SOFTWARE TESTER [facility] HEMATOCRIT (HCT) 39.8 38.0 - 50.0 % 04/02/2024 2:35 PM SOFTWARE TESTER [facility] MCV 90.2 82.0 - 96.0 fL 04/02/2024 2:35 PM [facility] MCH 32.4(H) 26.0 - 32.0 pg 04/02/2024 2:35 PM [facility] MCHC 35.9 31.0 - 36.0 g/dL 04/02/2024 2:35 PM [facility] PLATELET COUNT 191 140 - 440 10(3)/mcL 04/02/2024 2:35 PM [facility] RDW 12.2 11.8 - 15.5 % 04/02/2024 2:35 PM [facility] MPV 9.4 8.0 - 12.6 fL 04/02/2024 2:35 PM [facility] NEUTROPHILS 64.0 40.0 - 68.0 % 04/02/2024 2:35 PM [facility] LYMPHOCYTES 27.0 19.0 - 49.0 % 04/02/2024 2:35 PM [facility] MONOCYTES 7.2 3.0 - 13.0 % 04/02/2024 2:35 PM [facility] EOSINOPHILS 1.4 0.0 - 8.0 % 04/02/2024 2:35 PM [facility] BASOPHILS 0.4 0.0 - 1.0 % 04/02/2024 2:35 PM [facility] ABSOLUTE NEUTROPHILS 4.47 1.40 - 5.30 10(3)/mcL 04/02/2024 2:35 PM [facility] ABSOLUTE LYMPHOCYTES 1.89 0.90 - 3.30 10(3)/mcL 04/02/2024 2:35 PM [facility] ABSOLUTE MONOCYTES 0.50 0.10 - 0.90 10(3)/mcL 04/02/2024 2:35 PM [facility] ABSOLUTE EOSINOPHIL 0.10 0.00 - 0.50 10(3)/mcL 04/02/2024 2:35 PM [facility] ABSOLUTE BASOPHILS 0.03 0.00 - 0.10 10(3)/mcL 04/02/2024 2:35 PM SOFTWARE TESTER [facility] NRBC PER 100 WBC 0 04/02/19 2:35 PM SOFTWARE TESTER [facility] Blood Venipuncture / Unknown 04/02/2024 2:20 PM SOFTWARE TESTER 04/02/2024 2:32 PM SOFTWARE TESTER Heather Hollis MD HEMATOLOGY ORDERABLES Fi nal Result [facility] [address] [place] [address] * CMP (Comprehensive Metabolic Panel) (04/02/2024 2:20 PM SOFTWARE TESTER) SODIUM 138 136 - 145 mmol/L 04/02/2024 3:00 PM [facility] POTASSIUM 4.0 3.5 - 5.1 mmol/L 04/02/2024 3:00 PM [facility] CHLORIDE 104 98 - 107 mmol/L 04/02/2024 3:00 PM [facility] CO2, VENOUS 25 22 - 30 mmol/L 04/02/2024 3:00 PM [facility] ANION GAP 13.0 <18.0 mmol/L 04/02/2024 3:00 PM [facility] GLUCOSE 93 70 - 99 mg/dL 04/02/2024 3:00 PM [facility] BUN 11 9 - 21 mg/dL 04/02/2024 3:00 PM [facility] CREATININE, BLOOD 0.88 0.70 - 1.30 mg/dL 04/02/2024 3:00 PM [facility] BUN/CREATININE RATIO 13 12 - 20 ratio 04/02/2024 3:00 PM [facility] TOTAL PROTEIN 7.1 6.3 - 8.2 g/dL 04/02/2024 3:00 PM [facility] ALBUMIN 4.4 3.5 - 5.0 g/dL 04/02/2024 3:00 PM SOFTWARE TESTER [facility] A/G RATIO 1.6 1.0 - 2.2 04/02/2024 3:00 PM SOFTWARE TESTER [facility] CALCIUM 9.3 8.7 - 10.5 mg/dL 04/02/2024 3:00 PM SOFTWARE TESTER [facility] T BILI 0.4 0.2 - 1.2 mg/dL 04/02/2024 3:00 PM SOFTWARE TESTER [facility] SGOT (AST) 19 5 - 34 U/L 04/02/2024 3:00 PM SOFTWARE TESTER [facility] SGPT (ALT) 18 0 - 55 U/L 04/02/2024 3:00 PM SOFTWARE TESTER [facility] ALKALINE PHOSPHATASE 108 40 - 150 U/L 04/02/2024 3:00 PM SOFTWARE TESTER [facility] GFR, ESTIMATED >60 >=60 04/02/2024 3:00 PM SOFTWARE TESTER [facility] Comment: Creatinine Clearance is the preferred criteria for selecting drug dose adjustments in renally impaired patients. The GFR is provided as additional pertinent clinical information. GFR is reported in mL/min/1.73 sq m. Calculation based on the Chronic Kidney Disease Epidemiology Collaboration (CKD- EPI) equation refit without adjustment for race. GFR, EST. >60 >=60 025 3:00 PM SOFTWARE TESTER [facility] GFR, EST. NONAFRICAN >60 >=60 04/02/2024 3:00 PM SOFTWARE TESTER [facility] Blood Venipuncture / Unknown 04/02/2024 2:20 PM SOFTWARE TESTER 04/02/2024 2:32 PM SOFTWARE TESTER Heather Hollis MD CHEMISTRY ORDERABLES Fin al Result [facility] [address] [place] [address] * EKG 12 LEAD (04/02/2024 2:12 PM SOFTWARE TESTER) Ventricular Rate 57 BPM EXTERNAL EKG Atrial Rate 57 BPM EXTERNAL EKG P-R Interval 160 ms EXTERNAL EKG QRS Duration 92 ms EXTERNAL EKG Q-T Duration 390 ms EXTERNAL EKG QTC CALCULATION 379 ms EXTERNAL EKG P Anton[place] 72 degrees EXTERNAL EKG R [place] 73 degrees EXTERNAL EKG T [place] 58 degrees EXTERNAL EKG 04/02/2024 2:12 PM SOFTWARE TESTER Impressions EXTERNAL EKG - 04/04/2024 11:49 AM SOFTWARE TESTER Normal sinus rhythm Otherwise normal ECG When compared with ECG of 20-FEB-2024 06:16, No significant change was found ~ Confirmed by Misael Lugo ([id number]) on 04/04/2024 11:49:37 AM Narrative Procedure Note Misael Lugo MD - 04/04/2024 IMPRESSION: Normal sinus rhythm Otherwise normal ECG When compared with ECG of 20-FEB-2024 06:16, No significant change was found ~ Confirmed by Misael Lugo ([id number]) on 04/04/2024 11:49:37 AM Heather Hollis MD IMG ECG ORDERABLES Final Result Performing Organization Address City/[facility] Co de Phone Number EXTERNAL EKG * EKG SCAN (04/02/2024 12:00 AM SOFTWARE TESTER) 04/02/2024 us Provider Scan IMG ECG ORDERABLES Final Result RESULTING AGENCY from Last 3 Months Insurance MEDICAID [employer] Care Teams 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
== END 2024-06-15 11:27 | disposition home or self-care (01) ==
PROVIDERS: PCP Family Medicine; Visit Provider Family Medicine
DX: R63.4 Abnormal weight loss (principal); R19.7 Diarrhea, unspecified
CPT/HCPCS: 82272